=== PATIENT | male | born 1965 | race Caucasian/White ===

== ENCOUNTER 2020-11-02 19:42 | Emergency (ER) | payer MEDICAID ==
[~2020-11-02] VITALS: Ht 177.8 cm; Wt 110.0 kg
--- NOTE | 2020-11-02 20:10 | NUR ---
NAX1
--- NOTE | 2020-11-02 20:14 | NUR ---
NAX2
--- NOTE | 2020-11-02 20:32 | NUR ---
NAX3
--- NOTE | 2020-11-02 21:32 | NUR ---
Pt in [place] at this time.
[2020-11-02 21:57] VITALS: BP 150/88
[2020-11-02] MEDS ORDERED: KETOROLAC 30 MG/1 ML IM ONE (22:00)
== END 2020-11-02 20:38 | disposition home or self-care (01) ==
LOC: ED 20:32
DX: S82.64XA Nondisplaced fracture of lateral malleolus of right fibula, initial encounter for closed fracture (principal); W01.0XXA Fall on same level from slipping, tripping and stumbling without subsequent striking against object, initial encounter; Y93.89 Activity, other specified; Y92.89 Other specified places as the place of occurrence of the external cause; Y99.8 Other external cause status
CPT/HCPCS: 29515; 99284